=== PATIENT | female | born 1985 | race Caucasian/White ===

== ENCOUNTER → 2016-06-19 | Outpatient (CLI) | payer OTHER ==
[~2016-06-19] MED LIST: BCP TD; BENADRYL25 M2 PO; DICLOXACILLIN500 MG PO; FIORICET 325 MG1 TA1 PO; KLONOPIN 0.5MG0.5 MG PO; LAMICTAL 25MG T25 MG PO; LEVAQUIN 250MG250 MG PO; LORTAB 5/500 501 TAB PO; MACRODANTIN100; MOTRIN 600600 MG/TAB PO; MVI; PERCOCET 325 MG1 TA2 PO; PERIACTIN 4MG TA4 MG PO; PHENERGAN 25 TA25 MG PO; PHENERGAN PO; PRENTAL 1 PLUS1 TAB PO; SOMA 350MG350 MG/TAB PO; TRANDATE 100MG100 MG PO; TRANDATE 200MG200 MG PO; TREXIMET 500 MG1 TAB PO; ZANTAC 150MG T150 MG PO; [UNRECOGNIZED DRUG - MIXTURE] PO
== END ==
LOC: BHSO 10:36
DX: F41.1 Generalized anxiety disorder (principal)

== ENCOUNTER → 2016-07-30 | Outpatient (CLI) | payer OTHER | LOC: BHSO 10:25 | DX: F41.1 Generalized anxiety disorder (principal) ==

== ENCOUNTER 2016-08-24 19:59 | Emergency (ER) | payer OTHER ==
[~2016-08-24] VITALS: Ht 160 cm; Wt 61.4 kg
[2016-08-24 20:04] VITALS: TEMP 98.3
[2016-08-24 21:06] LABS: BASO % 0.5 % (0.0-2.0); EOS # 0.1 (0.0-0.7); EOS % 1.6 % (0-4.0); GRAN # 6.2 (1.4-6.5); GRAN % 76.6 % (42.2-75.2); HEMATOCRIT 41.1 % (37.0-47.0); HEMOGLOBIN 14.1 g/dl (12.5-16.0); LYMPH # 1.2 (1.2-3.4); LYMPH % 14.6 % (20.0-51.0); MEAN CELL VOLUME 90 fl (80.0-100.0); MEAN CORPUSCULAR HEMOGLOBIN 31 pg (27.0-31.0); MEAN CORPUSCULAR HGB CONC 34 g/dl (33.0-37.0); MEAN PLATELET VOLUME 9.3 fl (7.4-10.4); MONO # 0.5 (0.1-0.6); MONO % 6.2 % (1.7-9.3); PLATELET COUNT 377 K/mm3 (130-400); RED BLOOD COUNT 4.55 M/mm3 (4.10-5.30); REDCELL DISTRIBUTION WIDTH-CV 11.9 % (11.5-14.5); WHITE BLOOD COUNT 8.1 K/mm3 (4.8-10.8)
[2016-08-24 21:18] LABS: ADJUSTED CALCIUM 8.6 mg/dL (8.4-10.2); ALBUMIN 4.8 gm/dL (3.5-5.0); BILIRUBIN,TOTAL 0.8 mg/dL (0.0-1.0); C-REACTIVE PROTEIN 6.6 mg/dL (0.0-0.9); CALCIUM 9.2 mg/dL (8.4-10.2); CREATININE, serum 0.62 mg/dL (0.52-1.25); POTASSIUM 3.6 mmol/L (3.4-5.0); TOTAL PROTEIN 7.7 gm/dL (6.4-8.2)
[2016-08-24 22:17] LABS: INFLUENZA B NEGATIVE
[2016-08-24 22:40] LABS: ERYTHROCYTE SEDIMENTATION RATE 2 mm/hr (0-20)
[2016-08-24 23:10] VITALS: BP 112/78; PULSE 92
[2016-08-24] MEDS ORDERED: PHENERGAN 25 TA25 MG PO (23:12)
== END 2016-08-24 23:25 | disposition home or self-care (01) ==
LOC: COL.ER 19:59
PROVIDERS: Emergency Medicine
DX: G43.909 Migraine, unspecified, not intractable, without status migrainosus (principal); E86.0 Dehydration; M79.1 Myalgia; F41.9 Anxiety disorder, unspecified
CPT/HCPCS: J1170; J1200; J1885; J2550; J7030

== ENCOUNTER → 2016-10-26 | Outpatient (CLI) | payer OTHER | LOC: BHSO 15:57 | DX: F41.1 Generalized anxiety disorder (principal) ==

== ENCOUNTER → 2017-01-28 | Outpatient (CLI) | payer OTHER | LOC: BHSO 09:23 | DX: F41.1 Generalized anxiety disorder (principal) ==

== ENCOUNTER → 2017-04-02 | Outpatient (CLI) | payer OTHER | LOC: BHSO 11:27 | DX: F33.1 Major depressive disorder, recurrent, moderate (principal) ==

== ENCOUNTER → 2017-05-08 | Outpatient (CLI) | payer OTHER | LOC: BHSO 13:49 | DX: F41.1 Generalized anxiety disorder (principal) ==

== ENCOUNTER → 2017-07-18 | Outpatient (CLI) | payer OTHER | LOC: BHSO 14:57 | DX: F31.81 Bipolar II disorder (principal) | CPT/HCPCS: G0463 ==

== ENCOUNTER → 2017-11-22 | Outpatient (CLI) | payer OTHER | LOC: BHSO 08:38 | DX: F31.81 Bipolar II disorder (principal) | CPT/HCPCS: G0463 ==

== ENCOUNTER 2018-10-15 07:40 | Outpatient (CLI) | payer OTHER ==
[~2018-10-15] VITALS: Ht 160 cm; Wt 79.1 kg
--- NOTE | 2018-10-15 07:45 | NUR ---
Pt here from ER with c/o regular contractions for the past 3 hours. 38.4 weeks gestation. G4L2, prior c/section. Pt states she has been checking BP at home and this am was it was elevated. Inital BP 137/86. Assessment complete. Pt denies any vaginal bleeding or leaking of fluid. States baby has been active. SVE: pt did not tolerate. Will attempt again. No contractions palpated at this time.
[2018-10-15 07:48] VITALS: BP 137/86; PULSE 96; TEMP 98
--- NOTE | 2018-10-15 08:30 | NUR ---
Dr Vargas here and updated on pt here and complaints. Notified of BP's and this nurse unable to check cervix. Will continue to monitor at this time. 0835:SVE by this nurse. Cervix closed/thick/high. Contractions are every [address] Vargas here and notified, orders received to dc home. 0840:[place] instructions given, pt verbalizes understanding. No further questions noted.
[2018-10-15 08:45] VITALS: BP 131/81; PULSE 94
[2018-10-16] MEDS ORDERED: IMODIUM 2MG CAPS2 MG PO (17:49)
[2018-10-16] MEDS ORDERED: BENADRYL25 M2 PO (17:49)
== END 2018-10-15 08:45 | disposition home or self-care (01) ==
LOC: LDRO 07:40 → LDR 07:50 → LDRO 08:45
DX: O62.9 Abnormality of forces of labor, unspecified (principal); Z3A.38 38 weeks gestation of pregnancy
CPT/HCPCS: OP

== ENCOUNTER 2018-10-16 17:33 | Outpatient (CLI) | payer OTHER ==
[~2018-10-16] VITALS: Ht 160 cm; Wt 79.1 kg
[2018-10-16 17:42] VITALS: BP 139/89; PULSE 113; TEMP 98.1
--- NOTE | 2018-10-16 17:45 | NUR ---
Patient to unit accompanied by spouse. Patient complains of contractions, feeling light headed, nausea, can't breathe, seeing spots. Patient report good movement, denies any leaking of fluid or vaginal bleeding. FHR and contraction monitors placed and explained. SVE by Kristin Hernández RN closed/thick/high. Assessment completed.
[2018-10-16] MEDS ORDERED: BENADRYL25 M2 PO (17:49)
[2018-10-16] MEDS ORDERED: IMODIUM 2MG CAPS2 MG PO (17:49)
[2018-10-16 18:10] VITALS: BP 129/84; PULSE 92
[2018-10-16 19:00] VITALS: BP 122/77; PULSE 85; TEMP 98.4
== END 2018-10-16 18:55 | disposition home or self-care (01) ==
LOC: LDRO 17:33
DX: O62.9 Abnormality of forces of labor, unspecified (principal); O26.893 Other specified pregnancy related conditions, third trimester; R11.2 Nausea with vomiting, unspecified; R11.0 Nausea; R42 Dizziness and giddiness; Z3A.38 38 weeks gestation of pregnancy

== ENCOUNTER 2018-10-18 04:21 | Inpatient (IN) | payer OTHER ==
[2018-10-18] VITALS (20 sets, daily range): BP systolic 103–147; BP diastolic 59–92; PULSE 80–99; TEMP 97.9–98.6
[~2018-10-18] VITALS: Ht 160 cm; Wt 79.1 kg
[~2018-10-18 04:21] MED LIST changes: +IMODIUM 2MG CAPS2 MG PO
[2018-10-18] MEDS ORDERED: NEXIUM 20MG20 MG PO (04:40)
[2018-10-18 05:11] LABS: BASO # 0.1 (0.0-0.2); BASO % 0.5 % (0.0-2.0); EOS # 0.1 (0.0-0.7); EOS % 1.3 % (0-4.0); GRAN # 7.6 (1.4-6.5); GRAN % 71.6 % (42.2-75.2); HEMOGLOBIN 11.7 g/dl (12.5-16.0); LYMPH % 18.4 % (20.0-51.0); MEAN CELL VOLUME 86 fl (80.0-100.0); MEAN CORPUSCULAR HEMOGLOBIN 28 pg (27.0-31.0); MEAN CORPUSCULAR HGB CONC 32 g/dl (33.0-37.0); MEAN PLATELET VOLUME 10.8 fl (7.4-10.4); MONO # 0.7 (0.1-0.6); MONO % 6.9 % (1.7-9.3); PLATELET COUNT 280 K/mm3 (130-400); RED BLOOD COUNT 4.19 M/mm3 (4.10-5.30)
[2018-10-18 05:14] LABS: HEMATOCRIT 36.2 % (37.0-47.0)
--- NOTE | 2018-10-18 05:30 | NUR ---
0430- Patient ambulatory to LDR-4 from ED with . Patient and oriented to room. Patient into restroom to change into gown. 0432- EFM and TOCO on and tracing. Patient here with complaints of contractions since 99 and increasing in intensity. Patient has been having intermittent contractions since 10/15/18. SVE Closed/Thick/High. 0445- updated. 0500- IV started. LR IVF bolus infusing. 0515- Pepcid given per MERE Ttius. See eMAR. 0550- Patient ambulated to C/S suite.
--- NOTE | 2018-10-18 06:15 | NUR ---
Report from Theo Denson RN and care of patient assumed in OR. See intraoperative charting.
--- NOTE | 2018-10-18 18:46 | NUR ---
BEDSIDE REPORT RECEIVED, CARE TAKEN OVER BY THIS RN
[2018-10-19 09:00] VITALS: BP 120/84; PULSE 84; TEMP 98.7
--- NOTE | 2018-10-19 20:00 | NUR ---
2000 C/O PAIN IN HEAD, NECK AND INC. STATES HURTS EVERYWHERE. WANTS PAIN MED. ORDERED PAIN MED NOT DUE. DR RAMIREZ NOTIFIED OF PT REQUEST FOR MORE PAIN MED. NO NEW ORDERS RECIEVED. XANAX 1 MG PO GIVEN.
[2018-10-19 21:00] VITALS: BP 143/100; PULSE 99; TEMP 98.4
--- NOTE | 2018-10-19 21:00 | NUR ---
2100 CRYING. CONTINUES TO HAVE SAME PAIN. BABY TO NURSERY PER PARENTS REQUEST. SCHEDULED MOTRIN AND PERCOCET X2 PO GIVEN. 0 CONTS TO HAVE SAME PAIN. AMBIEN 5 MG PO GIVEN FOR SLEEP
[2018-10-19 23:00] VITALS: BP 126/85; PULSE 90
--- NOTE | 2018-10-19 23:00 | NUR ---
2300 AMBIEN 5 MG PO GIVEN PER REQUEST. STATES IS FEELING BETTER. READY TO SLEEP
--- NOTE | 2018-10-20 06:30 | NUR ---
Rests in bed, alert. Assessment done. Denies any pain at this time.
[2018-10-20 06:45] VITALS: BP 134/64; PULSE 77; TEMP 98
--- NOTE | 2018-10-20 09:30 | NUR ---
Request to have phenergan for nausea. Dr. Vargas called and new order for phenergan given. 0942 Phenergan 25 mg p.o. given per request and as ordered. 0944 Xanax 1 mg given per request and as ordered. Request to have blood pressure check done. blood pressure 130/85.
[2018-10-20 09:50] VITALS: BP 130/85; PULSE 107
[2018-10-20 15:45] VITALS: BP 132/80; PULSE 94; TEMP 97.9
[2018-10-20 19:04] VITALS: BP 139/99; PULSE 102; TEMP 97.7
[2018-10-21 07:30] VITALS: BP 122/77; PULSE 98; TEMP 97.7
--- NOTE | 2018-10-21 10:01 | NUR ---
Initial visit; Parents thanked [employer] for offering congratulations and God's blessings to their family for the of their son. [employer] thanked family for choosing [facility].
[2018-10-21 16:23] VITALS: BP 131/84; PULSE 93; TEMP 97.7
[2018-10-21 19:30] VITALS: BP 135/98; PULSE 94; TEMP 97.9
[2018-10-22 06:38] VITALS: BP 138/97; PULSE 100; TEMP 98.1
[2018-10-22] MEDS ORDERED: PHENERGAN 25 TA25 MG PO (08:09)
[2018-10-22] MEDS ORDERED: MOTRIN 800800 MG/TAB PO (08:09)
[2018-10-22] MEDS ORDERED: PERCOCET 325 MG1 TA2 PO (08:10)
[2018-10-22] MEDS ORDERED: XANAX 1MG1 MG PO (08:10)
== END 2018-10-22 13:10 | disposition home or self-care (01) | DRG 787 ==
LOC: OB 04:21 → LDR 13:31 → OB 10-19 16:30
PROVIDERS: ADMIT Obstetrics & Gynecology
PROC: 10D00Z1 Extraction of Products of Conception, Low, Open Approach (ICD-10-PCS; principal; 2018-10-18)
DX: O34.211 Maternal care for low transverse scar from previous cesarean delivery (principal); O99.354 Diseases of the nervous system complicating childbirth; O99.344 Other mental disorders complicating childbirth; F41.9 Anxiety disorder, unspecified; G43.909 Migraine, unspecified, not intractable, without status migrainosus; Z88.2 Allergy status to sulfonamides; O69.1XX0 Labor and delivery complicated by cord around neck, with compression, not applicable or unspecified; O90.89 Other complications of the puerperium, not elsewhere classified; R11.0 Nausea; Z3A.39 39 weeks gestation of pregnancy; Z37.0 Single live birth; Z87.891 Personal history of nicotine dependence
CPT/HCPCS: J0690; J1885; J2250; J2270; J2370; J2405; J2550; J2590; J3010; J7120

== ENCOUNTER → 2019-01-16 | Outpatient (CLI) | payer OTHER ==
[~2019-01-16] MED LIST changes: +MOTRIN 800800 MG/TAB PO; +NEXIUM 20MG20 MG PO; +XANAX 1MG1 MG PO
== END ==
LOC: BHSO 13:57
DX: F41.1 Generalized anxiety disorder (principal)
CPT/HCPCS: G0463

== ENCOUNTER 2019-02-05 15:15 | Emergency (ER) | payer OTHER ==
[~2019-02-05] VITALS: Ht 160 cm; Wt 59.1 kg
[2019-02-05 15:49] VITALS: TEMP 98
[2019-02-05 16:20] LABS: BASO % 0.4 % (0.0-2.0); EOS # 0.2 (0.0-0.7); EOS % 2.7 % (0-4.0); GRAN # 4.5 (1.4-6.5); GRAN % 66.7 % (42.2-75.2); HEMATOCRIT 37.4 % (37.0-47.0); HEMOGLOBIN 12.3 g/dl (12.5-16.0); LYMPH # 1.5 (1.2-3.4); LYMPH % 21.7 % (20.0-51.0); MEAN CELL VOLUME 88 fl (80.0-100.0); MEAN CORPUSCULAR HEMOGLOBIN 29 pg (27.0-31.0); MEAN CORPUSCULAR HGB CONC 33 g/dl (33.0-37.0); MEAN PLATELET VOLUME 9.2 fl (7.4-10.4); MONO # 0.6 (0.1-0.6); MONO % 8.2 % (1.7-9.3); PLATELET COUNT 363 K/mm3 (130-400); RED BLOOD COUNT 4.25 M/mm3 (4.10-5.30); REDCELL DISTRIBUTION WIDTH-CV 12.7 % (11.5-14.5)
[2019-02-05 16:32] LABS: CALCIUM 9.3 mg/dL (8.4-10.2); CREATININE, serum 0.47 (0.52-1.25); POTASSIUM 3.7 mmol/L (3.4-5.0)
[2019-02-05 19:15] VITALS: BP 128/81; PULSE 84
== END 2019-02-05 19:15 | disposition home or self-care (01) ==
LOC: COL.ER 15:15
PROVIDERS: Physician Assistant
DX: G43.909 Migraine, unspecified, not intractable, without status migrainosus (principal); Z79.899 Other long term (current) drug therapy; Z87.891 Personal history of nicotine dependence
CPT/HCPCS: J1200; J1885; J2550; J7030

== ENCOUNTER → 2019-04-24 | Outpatient (CLI) | payer OTHER | LOC: BHSO 10:55 | DX: F41.1 Generalized anxiety disorder (principal) | CPT/HCPCS: G0463 ==

== ENCOUNTER → 2019-07-20 | Outpatient (CLI) | payer OTHER | LOC: BHSO 09:01 | DX: F33.42 Major depressive disorder, recurrent, in full remission (principal) | CPT/HCPCS: G0463 ==

== ENCOUNTER → 2019-10-14 | Outpatient (CLI) | payer OTHER | LOC: BHSO 13:43 | DX: F41.1 Generalized anxiety disorder (principal) | CPT/HCPCS: G0463 ==

== ENCOUNTER → 2019-11-25 | Outpatient (CLI) | payer OTHER | LOC: BHSO 10:47 | DX: F41.1 Generalized anxiety disorder (principal) | CPT/HCPCS: G0463 ==

== ENCOUNTER → 2020-02-03 | Outpatient (CLI) | payer OTHER | LOC: BHSO 10:56 | DX: F41.1 Generalized anxiety disorder (principal) | CPT/HCPCS: G0463 ==

== ENCOUNTER → 2021-02-14 | Outpatient (CLI) | payer OTHER | LOC: MHCPAIN 13:08 | DX: M54.2 Cervicalgia (principal); M54.81 Occipital neuralgia; R51.9 Headache, unspecified | CPT/HCPCS: G0463 ==

== ENCOUNTER 2021-05-25 15:50 | Emergency (ER) | payer OTHER ==
[~2021-05-25] VITALS: Ht 165.1 cm; Wt 68.2 kg
[2021-05-25 16:20] VITALS: TEMP 98.1
[2021-05-25] MEDS ORDERED: ZOFRAN ODT4 MG PO (17:54)
[2021-05-25 17:59] VITALS: BP 133/77; PULSE 118
[2021-05-25] MEDS ORDERED: PHENERGAN 25 TA25 MG PO (18:00)
== END 2021-05-25 18:02 | disposition home or self-care (01) ==
LOC: COL.ER 15:50
DX: B34.9 Viral infection, unspecified (principal); F41.9 Anxiety disorder, unspecified; Z20.822 Contact with and (suspected) exposure to COVID-19; Z79.899 Other long term (current) drug therapy
CPT/HCPCS: J1885

== ENCOUNTER → 2021-12-06 | Outpatient (CLI) | payer OTHER ==
[~2021-12-06] MED LIST changes: +ZOFRAN ODT4 MG PO
== END ==
LOC: COL.RAD 08:21
DX: N99.71 Accidental puncture and laceration of a genitourinary system organ or structure during a genitourinary system procedure (principal)
CPT/HCPCS: Q9967

== ENCOUNTER 2021-12-18 15:55 | Day surgery (SDC) | payer OTHER ==
[~2021-12-18] VITALS: Ht 160 cm; Wt 62.7 kg
[2021-12-18 16:43] VITALS: BP 121/76; PULSE 90; TEMP 98
[2021-12-18 20:20] VITALS: BP 114/76; PULSE 84; TEMP 98.3
--- NOTE | 2021-12-18 20:20 | NUR ---
PATIENT BACK IN ROOM 323 POST OP. ORIENTED BUT DROWYS. PATIENT RECEIVED PAIN MEDS IN PACU PER HER REQUEST. PATIENT REPORT FEAR OF PAIN. PATIENT RATES PAIN HIGH EVEN WHILE DROWSY AND FALLING ASLEEP. PATIENT SPECIFICALLY REQUESTING IV MORPHINE AND DENIED ORAL PAIN MEDS. GAVE PRN IV MORPHINE PER PATIENT REQUEST. PATIENT VOIDING POST OP. NURSING OFFERED FOOD WHICH IS NOW AT BEDSIDE. PATIENT AND EDUCATED ABOUT DISCHARGE CRITERIA. PATIENT RESTING. VSS. CALL LIGHT IN REACH.
[2021-12-18 20:35] VITALS: BP 118/69; PULSE 94
[2021-12-18 20:50] VITALS: BP 96/49; PULSE 92
[2021-12-18 21:05] VITALS: BP 109/70; PULSE 91
[2021-12-18 21:35] VITALS: BP 107/56; PULSE 89
--- NOTE | 2021-12-18 21:45 | NUR ---
PATIENT HAS MEET DISCHARGE CRITERIA. DC'D LEFT HAND IV AND COVERED SITE WITH GAUZE & COBAN. GAVE DISCHARGE INSTRUCTIONS AND DISCUSSED F/U APT. ANSWERED QUESTIONS/CONCERNS. PATIENT INQUIRED ABOUT THE POSIBILITY OF NEEDING "PAIN MEDS" AT HOME. NURSING PROVIDED THE TYPICAL DISCHARGE PAIN MANAGEMENT DISCHARGE INSTRUCTIONS INCLUDING HOME DOSE OF TYLENOL & IBUPROFEN. UROLOGY DID NOT PRESCRIBE NARCOTICS POST OP. NURSING THEN DIFFERED TO UROLOGY IF THERE IS PAIN ISSUES AFTER DISCHARGING. PATIENT REPORTS SHE IS FINE BUT WAS JUST WORRIED ABOUT THE DISCHARGE PLAN, PATIENT VERBALIZED UNDERSTANDING OF DISCHARGE EDUCATION. PATIENT IS DRESSED, PACKED AND DISCHARGED TO PERSONAL VEHICLE WITH .
== END 2021-12-18 21:45 | disposition home or self-care (01) ==
LOC: SDCO 15:55 → SURG 15:58 → SDCO 19:15
DX: Z96.0 Presence of urogenital implants (principal); Z87.891 Personal history of nicotine dependence
CPT/HCPCS: OP; C1769; J1170; J1885; J2060; J2250; J2270; J2550; J2704; J3010